=== PATIENT | male | born 1990 | race African-American/Black ===

== ENCOUNTER 2018-05-27 19:29 | Emergency (ER) | payer OTHER ==
[~2018-05-27] VITALS: Ht 180.3 cm; Wt 70.3 kg
[2018-05-27 21:00] VITALS: BP 122/86
== END 2018-05-27 21:02 | disposition home or self-care (01) ==
LOC: M.ERS 19:29
DX: S00.83XA Contusion of other part of head, initial encounter (principal); S00.511A Abrasion of lip, initial encounter; F17.210 Nicotine dependence, cigarettes, uncomplicated; Y08.89XA Assault by other specified means, initial encounter; Y93.89 Activity, other specified; Y92.89 Other specified places as the place of occurrence of the external cause; Y99.8 Other external cause status